=== PATIENT | male | born 1935 | race Caucasian/White ===

== ENCOUNTER 2016-10-25 11:48 | Emergency (ER) | payer BC ==
[~2016-10-25] VITALS: Ht 170.2 cm; Wt 75.0 kg
[~2016-10-25 11:48] MED LIST: ATOR20TA42 PO; CYAN2500 PO; LEXA20TA PO; LOTR5CAP3 PO; TAB-TAB PO; XANA0.5T PO
[2016-10-25 12:14] VITALS: PULSE 76; RESP 18; TEMP 97.9; O2SAT 96
[2016-10-25] MEDS ORDERED: ESCI10TA PO (12:40)
[2016-10-25] MEDS ORDERED: PERC5TAB12 PO (12:40)
[2016-10-25] MEDS ORDERED: OMEP20TA PO (12:40)
[2016-10-25] MEDS ORDERED: CYAN25003 SL (12:40)
[2016-10-25] MEDS ORDERED: AMLO5TAB2 PO (12:40)
[2016-10-25] MEDS ORDERED: ALPR0.5T3 PO (12:40)
[2016-10-25] MEDS ORDERED: MELO7.5T4 PO (12:40)
--- NOTE | 2016-10-25 12:42 | PD ---
HPI Chief Complaint: Musculoskeletal Complaint Time Seen by Provider: 12:35 Travel History International Travel<30 days: No Contact w/Intl Traveler<30days: No Traveled to known affect area: No History of Present Illness HPI Send 81 year-old man who tripped and fell while taking the garbage out 3 days ago. He fell onto his right side. He is not sure what hit him was a curb or the cans he was carrying. He braced his fall with his hands. Denies hitting his head. He is not on any blood thinners. He's had worsening pain on the right side with gradually improving. He states today was the first time he felt well enough to come out to be seen. Pain is worse with movement, deep breathing, coughing. No other complaints. History Past Medical History Narrative Medical Hypertension Hodgkin's lymphoma with Spinal surgery for malignancy Influenza Vaccination: Yes Social History Alcohol Use: Yes (SOC) Tobacco Use: No Allergies-Medications (Allergen,Severity, Reaction): Coded Allergies: No Known Allergies (Unverified , 10/25/16) pt verified no known allergies Reported Meds & Prescriptions Reported Meds & Active Scripts Active Reported Omeprazole 20 Mg Tab 20 Mg PO HS Escitalopram (Escitalopram Oxalate) 10 Mg Tab 10 Mg PO DAILY Amlodipine (Amlodipine Besylate) 5 Mg Tab 5 Mg PO DAILY Meloxicam 7.5 Mg Tab 7.5 Mg PO BID Vitamin B-12 (Cyanocobalamin) 2,500 Mcg Subl 2,500 Mcg SL BID Alprazolam 0.5 Mg Tab 0.5 Mg PO BID PRN Percocet (Oxycodone-Acetaminophen) 5-325 mg Tab 1 Tab PO Q4H PRN Review of Systems Except as stated in HPI: all other systems reviewed are Neg Physical Exam Narrative GENERAL: Well-appearing 81 year-old man, no acute distress. SKIN: Warm and dry. HEAD: Atraumatic. Normocephalic. NECK: Moves neck freely. No evidence of injury. CARDIOVASCULAR: Regular rate and rhythm. No murmur appreciated. RESPIRATORY: No accessory muscle use. Clear to auscultation. Breath sounds equal bilaterally. Chest wall: He is significant tenderness to palpation of the right side of the chest wall. No obvious bruising. GASTROINTESTINAL: Abdomen soft, non-tender, nondistended. Hepatic and splenic margins not palpable. MUSCULOSKELETAL: No obvious deformities. No edema. Hips are nontender. Full range of motion of the right hip. NEUROLOGICAL: Awake and alert. No obvious cranial nerve deficits. Motor grossly within normal limits. Normal speech. Data Data Last Documented VS Vital Signs Date Time Temp Pulse Resp B/P Pulse Ox O2 Delivery O2 Flow Rate FiO2 10/25/16 12:14 97.9 76 18 96 Orders Ribs, Uni (W/Exp Cxr-Min 3vw) (10/25/16 ) Resp Incentive Spirometry (10/25/16 ) [facility] Medical Decision Making Medical Screen Exam Complete: Yes Emergency Medical Condition: Yes Interpretation(s) Chest x-ray: Right sided 60 rate rib fractures. Differential Diagnosis Chest wall pain, rib fracture, abdominal injury, liver injury, hip injury, other Narrative Course Medical decision making 81 year-old man presents emergent arm with a fall 3 days ago, right rib pain, abdomen appears benign. I don't think he injured his liver in any Significant way. Hips and pelvis seem unaffected. We'll check right sided rib series, supportive treatment. Diagnosis Primary Impression: Ribs, multiple fractures Qualified Code: S22.41XA - Closed fracture of multiple ribs of right side, initial encounter Patient Instructions: General Instructions Additional Instructions: Use incentive spirometer 4 times every hour to encourage deep breathing. Get about a beer chair and walk as much as possible as it helps open the lungs up. Take Lortab as needed for pain. Follow-up with your primary doctor in 3-4 days. Return to the emergency department for any new or worsening symptoms. Med/Other Pt SpecificInfo: Prescription(s) given Scripts Hydrocodone-Acetaminophen (Lortab)5-325 Mg Tab1-2 Tab PO Q6H PRN (PAIN) #12 TAB Prov:Cipriano Garrison MD 10/25/16 Disposition: 01 DISCHARGE HOME Condition: Stable Cipriano Garrison MD Oct 25, 2016 12:42
--- NOTE | 2016-10-25 13:27 | RADHPO ---
EXAM DATE/TIME: 10/25/2016 12:56 [facility] COMPARISON: No previous studies available for comparison. INDICATIONS : Fall, right side rib pain. MEDICAL HISTORY : None. SURGICAL HISTORY : None. ENCOUNTER: Initial ACUITY: 4 - 6 days PAIN SCORE: 10/10 LOCATION: Right flank ribs FINDINGS: Multiple views of the right ribs were performed. There are lateral fractures of the right sixth thro ugh eighth ribs. No destructive lesions or areas of periosteal thickening are seen. Expiratory view of the chest is negative for pneumothorax. The mediastinal structures are midline. Bibasilar atele ctasis. CONCLUSION: Right-sided 6-8 rib fractures. Bibasilar atelectasis. No pneumothorax. Edy Gabriel MD on October 25, 2016 at 13:23 Board Certified Radiologist. This report was verified electronically.
[2016-10-25] MEDS ORDERED: HYDR-3533 PO ×2 (13:37→13:46)
[2016-10-25] MEDS ORDERED: ACETAMINOPHEN/HYDROcodone 325 MG/5 MG TAB PO ONE (13:45)
[2016-10-25] MEDS ORDERED: PERI8.6T PO (13:46)
== END 2016-10-25 14:17 | disposition home or self-care (01) ==
LOC: PHEFT 11:48
DX: S22.41XA Multiple fractures of ribs, right side, initial encounter for closed fracture (principal); I10 Essential (primary) hypertension; W18.09XA Striking against other object with subsequent fall, initial encounter; Y93.01 Activity, walking, marching and hiking; Y92.9 Unspecified place or not applicable; Y99.9 Unspecified external cause status
CPT/HCPCS: 71101; 94150; 99283